=== PATIENT | female | born 1980 | race Caucasian/White ===

== ENCOUNTER → 2016-04-20 | Outpatient (CLI) | payer SELFPAY ==
[~2016-04-20] MED LIST: CO Q-1010 M1 PO; MOBIC 7.5MG7.5 MG PO; MOTRIN 400400 MG/TAB PO; MULTI VITAMINS1 TAB PO; SYNTHROID0.137 MG; TYLENOL 325MG325 MG PO; ULTRAM 50MG TAB50 MG PO; ZOFRAN8 MG PO
== END ==
LOC: BHSO 09:45
DX: F43.10 Post-traumatic stress disorder, unspecified (principal)

== ENCOUNTER → 2016-11-21 | Outpatient (CLI) | payer SELFPAY | LOC: BHSO 14:56 | DX: F43.10 Post-traumatic stress disorder, unspecified (principal) ==

== ENCOUNTER → 2017-01-19 | Outpatient (CLI) | payer BC | LOC: BHSO 13:46 | DX: F33.1 Major depressive disorder, recurrent, moderate (principal) ==

== ENCOUNTER → 2017-02-21 | Outpatient (CLI) | payer BC | LOC: BHSO 10:03 | DX: F33.1 Major depressive disorder, recurrent, moderate (principal) ==

== ENCOUNTER → 2017-03-02 | Outpatient (CLI) | payer BC | LOC: BHSO 13:54 | DX: F33.1 Major depressive disorder, recurrent, moderate (principal) ==

== ENCOUNTER → 2017-03-12 | Outpatient (CLI) | payer BC | LOC: COL.VAS 08:00 | DX: I07.1 Rheumatic tricuspid insufficiency (principal) ==

== ENCOUNTER → 2017-03-20 | Outpatient (CLI) | payer BC | LOC: BHSO 15:02 | DX: F33.1 Major depressive disorder, recurrent, moderate (principal) | CPT/HCPCS: G0463 ==

== ENCOUNTER → 2017-03-23 | Outpatient (CLI) | payer BC | LOC: BHSO 14:02 | DX: F33.2 Major depressive disorder, recurrent severe without psychotic features (principal) ==

== ENCOUNTER → 2017-04-20 | Outpatient (CLI) | payer BC | LOC: BHSO 15:03 | DX: F33.2 Major depressive disorder, recurrent severe without psychotic features (principal) ==

== ENCOUNTER → 2017-05-31 | Outpatient (CLI) | payer BC | LOC: BHSO 15:49 | DX: F33.2 Major depressive disorder, recurrent severe without psychotic features (principal) ==

== ENCOUNTER → 2017-06-20 | Outpatient (CLI) | payer BC | LOC: COL.RAD 10:50 | DX: R51 Headache (principal); Z98.1 Arthrodesis status; R20.2 Paresthesia of skin | CPT/HCPCS: Q9967 ==

== ENCOUNTER → 2017-06-22 | Outpatient (CLI) | payer BC | LOC: BHSO 13:56 | DX: F33.2 Major depressive disorder, recurrent severe without psychotic features (principal) ==

== ENCOUNTER → 2017-07-12 | Outpatient (CLI) | payer BC | LOC: BHSO 16:05 | DX: F33.1 Major depressive disorder, recurrent, moderate (principal) ==

== ENCOUNTER → 2017-07-19 | Outpatient (CLI) | payer BC | LOC: BHSO 15:50 | DX: F33.2 Major depressive disorder, recurrent severe without psychotic features (principal) ==

== ENCOUNTER → 2017-08-02 | Outpatient (CLI) | payer BC | LOC: BHSO 16:00 | DX: F33.2 Major depressive disorder, recurrent severe without psychotic features (principal) ==

== ENCOUNTER → 2017-08-16 | Outpatient (CLI) | payer BC | LOC: BHSO 15:47 | DX: F33.1 Major depressive disorder, recurrent, moderate (principal) ==

== ENCOUNTER → 2017-08-30 | Outpatient (CLI) | payer BC | LOC: BHSO 15:46 | DX: F33.1 Major depressive disorder, recurrent, moderate (principal) ==

== ENCOUNTER → 2017-09-06 | Outpatient (CLI) | payer BC | LOC: BHSO 15:44 | DX: F43.10 Post-traumatic stress disorder, unspecified (principal) | CPT/HCPCS: G0463 ==

== ENCOUNTER → 2017-09-13 | Outpatient (CLI) | payer BC | LOC: BHSO 15:55 | DX: F33.1 Major depressive disorder, recurrent, moderate (principal) ==

== ENCOUNTER → 2017-09-27 | Outpatient (CLI) | payer BC | LOC: BHSO 16:02 | DX: F33.2 Major depressive disorder, recurrent severe without psychotic features (principal) ==

== ENCOUNTER → 2017-10-11 | Outpatient (CLI) | payer BC | LOC: BHSO 15:52 | DX: F41.1 Generalized anxiety disorder (principal) ==

== ENCOUNTER → 2017-10-23 | Outpatient (CLI) | payer BC | LOC: BHSO 15:45 | DX: F33.1 Major depressive disorder, recurrent, moderate (principal) ==

== ENCOUNTER → 2017-11-08 | Outpatient (CLI) | payer BC | LOC: BHSO 15:52 | DX: F33.1 Major depressive disorder, recurrent, moderate (principal) ==

== ENCOUNTER → 2017-11-23 | Outpatient (CLI) | payer BC | LOC: BHSO 13:54 | DX: F33.1 Major depressive disorder, recurrent, moderate (principal) ==

== ENCOUNTER → 2017-12-07 | Outpatient (CLI) | payer BC | LOC: BHSO 13:46 | DX: F33.2 Major depressive disorder, recurrent severe without psychotic features (principal) ==

== ENCOUNTER → 2017-12-11 | Outpatient (CLI) | payer BC | LOC: COL.RAD 09:16 | DX: Z09 Encounter for follow-up examination after completed treatment for conditions other than malignant neoplasm (principal); Z98.1 Arthrodesis status; Z87.39 Personal history of other diseases of the musculoskeletal system and connective tissue ==

== ENCOUNTER → 2017-12-13 | Outpatient (CLI) | payer BC | LOC: BHSO 13:07 | DX: F33.2 Major depressive disorder, recurrent severe without psychotic features (principal) ==

== ENCOUNTER → 2018-01-16 | Outpatient (CLI) | payer BC | LOC: BHSO 13:34 | DX: F43.10 Post-traumatic stress disorder, unspecified (principal) | CPT/HCPCS: G0463 ==

== ENCOUNTER → 2018-01-30 | Outpatient (CLI) | payer BC | LOC: BHSO 14:50 | DX: F33.2 Major depressive disorder, recurrent severe without psychotic features (principal) ==

== ENCOUNTER → 2018-01-31 | Outpatient (CLI) | payer BC | LOC: COL.RAD 09:46 | DX: E04.2 Nontoxic multinodular goiter (principal) ==

== ENCOUNTER → 2018-02-11 | Outpatient (CLI) | payer BC | LOC: COL.RAD 11:59 | DX: Z98.1 Arthrodesis status (principal) ==

== ENCOUNTER → 2018-02-13 | Outpatient (CLI) | payer BC | LOC: BHSO 09:51 | DX: F33.2 Major depressive disorder, recurrent severe without psychotic features (principal) ==

== ENCOUNTER → 2018-02-21 | Outpatient (CLI) | payer BC | LOC: BHSO 11:41 | DX: F06.32 Mood disorder due to known physiological condition with major depressive-like episode (principal) | CPT/HCPCS: G0463 ==

== ENCOUNTER → 2018-02-22 | Outpatient (CLI) | payer BC | LOC: BHSO 13:54 | DX: F33.2 Major depressive disorder, recurrent severe without psychotic features (principal) ==

== ENCOUNTER → 2018-03-06 | Outpatient (CLI) | payer BC | LOC: BHSO 12:59 | DX: F33.2 Major depressive disorder, recurrent severe without psychotic features (principal) ==

== ENCOUNTER → 2018-03-15 | Outpatient (CLI) | payer BC | LOC: BHSO 10:54 | DX: F33.2 Major depressive disorder, recurrent severe without psychotic features (principal) ==

== ENCOUNTER → 2018-03-27 | Outpatient (CLI) | payer BC | LOC: BHSO 10:36 | DX: F43.10 Post-traumatic stress disorder, unspecified (principal) | CPT/HCPCS: G0463 ==

== ENCOUNTER → 2018-04-03 | Outpatient (CLI) | payer BC | LOC: BHSO 08:47 | DX: F33.2 Major depressive disorder, recurrent severe without psychotic features (principal) ==

== ENCOUNTER → 2018-04-08 | Outpatient (CLI) | payer BC | LOC: BHSO 12:49 | DX: F33.2 Major depressive disorder, recurrent severe without psychotic features (principal) ==

== ENCOUNTER → 2018-04-15 | Outpatient (CLI) | payer BC | LOC: BHSO 11:03 | DX: F33.1 Major depressive disorder, recurrent, moderate (principal) ==

== ENCOUNTER → 2018-04-25 | Outpatient (CLI) | payer BC | LOC: BHSO 12:54 | DX: F33.1 Major depressive disorder, recurrent, moderate (principal) ==

== ENCOUNTER → 2018-05-02 | Outpatient (CLI) | payer BC | LOC: BHSO 14:57 | DX: F43.10 Post-traumatic stress disorder, unspecified (principal) ==

== ENCOUNTER → 2018-05-08 | Outpatient (CLI) | payer BC | LOC: BHSO 12:56 | DX: F33.1 Major depressive disorder, recurrent, moderate (principal) ==

== ENCOUNTER → 2018-05-15 | Outpatient (CLI) | payer BC | LOC: BHSO 14:36 | DX: F43.10 Post-traumatic stress disorder, unspecified (principal) | CPT/HCPCS: G0463 ==

== ENCOUNTER → 2018-05-16 | Outpatient (CLI) | payer BC | LOC: BHSO 14:57 | DX: F33.1 Major depressive disorder, recurrent, moderate (principal) ==

== ENCOUNTER → 2018-05-29 | Outpatient (CLI) | payer BC | LOC: BHSO 10:49 | DX: F43.10 Post-traumatic stress disorder, unspecified (principal) ==

== ENCOUNTER → 2018-06-10 | Outpatient (CLI) | payer SELFPAY | LOC: COL.RAD 13:30 | DX: M50.121 Cervical disc disorder at C4-C5 level with radiculopathy (principal); M48.02 Spinal stenosis, cervical region; Z98.1 Arthrodesis status; M40.202 Unspecified kyphosis, cervical region ==

== ENCOUNTER → 2018-06-13 | Outpatient (CLI) | payer SELFPAY | LOC: BHSO 12:57 | DX: F43.10 Post-traumatic stress disorder, unspecified (principal) ==

== ENCOUNTER → 2018-06-24 | Outpatient (CLI) | payer SELFPAY | LOC: BHSO 11:04 | DX: F33.1 Major depressive disorder, recurrent, moderate (principal) ==

== ENCOUNTER → 2018-07-08 | Outpatient (CLI) | payer SELFPAY | LOC: BHSO 10:56 | DX: F33.1 Major depressive disorder, recurrent, moderate (principal) ==

== ENCOUNTER → 2018-07-16 | Outpatient (CLI) | payer SELFPAY | LOC: BHSO 13:56 | DX: F33.1 Major depressive disorder, recurrent, moderate (principal) ==

== ENCOUNTER → 2018-07-18 | Outpatient (CLI) | payer SELFPAY | LOC: BHSO 14:12 | DX: F43.10 Post-traumatic stress disorder, unspecified (principal) | CPT/HCPCS: G0463 ==

== ENCOUNTER → 2018-08-13 | Outpatient (CLI) | payer SELFPAY | LOC: BHSO 12:52 | DX: F31.81 Bipolar II disorder (principal) ==

== ENCOUNTER → 2018-10-01 | Outpatient (CLI) | payer SELFPAY | LOC: BHSO 13:53 | DX: F43.10 Post-traumatic stress disorder, unspecified (principal) | CPT/HCPCS: G0463 ==

== ENCOUNTER → 2018-10-02 | Outpatient (CLI) | payer SELFPAY | LOC: BHSO 10:56 | DX: F33.1 Major depressive disorder, recurrent, moderate (principal) ==

== ENCOUNTER → 2018-10-29 | Outpatient (CLI) | payer SELFPAY | LOC: BHSO 15:10 | DX: F43.10 Post-traumatic stress disorder, unspecified (principal) | CPT/HCPCS: G0463 ==

== ENCOUNTER → 2018-10-31 | Outpatient (CLI) | payer SELFPAY | LOC: BHSO 11:07 | DX: F33.1 Major depressive disorder, recurrent, moderate (principal) ==

== ENCOUNTER → 2018-11-07 | Outpatient (CLI) | payer SELFPAY | LOC: BHSO 08:50 | DX: F33.1 Major depressive disorder, recurrent, moderate (principal) ==

== ENCOUNTER → 2018-11-13 | Outpatient (CLI) | payer SELFPAY | LOC: BHSO 14:00 | DX: F33.1 Major depressive disorder, recurrent, moderate (principal) ==

== ENCOUNTER → 2018-11-22 | Outpatient (CLI) | payer SELFPAY | LOC: BHSO 13:16 | DX: F33.2 Major depressive disorder, recurrent severe without psychotic features (principal) ==

== ENCOUNTER → 2018-12-02 | Outpatient (CLI) | payer SELFPAY | LOC: BHSO 13:04 | DX: F33.2 Major depressive disorder, recurrent severe without psychotic features (principal) ==

== ENCOUNTER → 2018-12-09 | Outpatient (CLI) | payer SELFPAY | LOC: BHSO 13:03 | DX: F33.1 Major depressive disorder, recurrent, moderate (principal) ==

== ENCOUNTER → 2018-12-20 | Outpatient (CLI) | payer SELFPAY | LOC: BHSO 09:58 | DX: F33.1 Major depressive disorder, recurrent, moderate (principal) ==

== ENCOUNTER → 2018-12-27 | Outpatient (CLI) | payer SELFPAY | LOC: BHSO 13:56 | DX: F43.10 Post-traumatic stress disorder, unspecified (principal) | CPT/HCPCS: G0463 ==

== ENCOUNTER → 2018-12-30 | Outpatient (CLI) | payer SELFPAY | LOC: BHSO 15:04 | DX: F33.1 Major depressive disorder, recurrent, moderate (principal) ==

== ENCOUNTER → 2019-01-13 | Outpatient (CLI) | payer SELFPAY | LOC: COL.RAD 14:32 | DX: M50.121 Cervical disc disorder at C4-C5 level with radiculopathy (principal); M40.209 Unspecified kyphosis, site unspecified; Z98.1 Arthrodesis status; M48.02 Spinal stenosis, cervical region ==

== ENCOUNTER → 2019-01-15 | Outpatient (CLI) | payer SELFPAY | LOC: BHSO 14:00 | DX: F33.1 Major depressive disorder, recurrent, moderate (principal) ==

== ENCOUNTER → 2019-03-03 | Outpatient (CLI) | payer SELFPAY | LOC: BHSO 13:02 | DX: F43.10 Post-traumatic stress disorder, unspecified (principal) | CPT/HCPCS: G0463 ==

== ENCOUNTER → 2019-03-19 | Outpatient (CLI) | payer SELFPAY | LOC: BHSO 13:56 | DX: F43.10 Post-traumatic stress disorder, unspecified (principal) ==

== ENCOUNTER → 2019-04-18 | Outpatient (CLI) | payer SELFPAY | LOC: BHSO 10:04 | DX: F43.10 Post-traumatic stress disorder, unspecified (principal) ==

== ENCOUNTER → 2019-05-09 | Outpatient (CLI) | payer SELFPAY | LOC: BHSO 13:01 | DX: F43.10 Post-traumatic stress disorder, unspecified (principal) ==

== ENCOUNTER → 2019-05-16 | Outpatient (CLI) | payer SELFPAY | LOC: BHSO 13:00 | DX: F43.10 Post-traumatic stress disorder, unspecified (principal) ==

== ENCOUNTER → 2019-05-23 | Outpatient (CLI) | payer SELFPAY | LOC: BHSO 12:53 | DX: F43.10 Post-traumatic stress disorder, unspecified (principal) ==

== ENCOUNTER → 2019-06-16 | Outpatient (CLI) | payer SELFPAY | LOC: BHSO 14:00 | DX: F43.10 Post-traumatic stress disorder, unspecified (principal) ==

== ENCOUNTER → 2019-07-14 | Outpatient (CLI) | payer SELFPAY | LOC: BHSO 15:00 | DX: F43.10 Post-traumatic stress disorder, unspecified (principal) ==

== ENCOUNTER → 2019-07-29 | Outpatient (CLI) | payer SELFPAY | LOC: BHSO 15:10 | DX: F43.10 Post-traumatic stress disorder, unspecified (principal) ==

== ENCOUNTER → 2019-08-04 | Outpatient (CLI) | payer SELFPAY | LOC: BHSO 14:01 | DX: F43.10 Post-traumatic stress disorder, unspecified (principal) ==

== ENCOUNTER → 2019-09-12 | Outpatient (CLI) | payer SELFPAY | LOC: COL.RAD 15:17 | DX: R06.00 Dyspnea, unspecified (principal); R10.13 Epigastric pain | CPT/HCPCS: Q9967 ==

== ENCOUNTER → 2019-09-16 | Outpatient (CLI) | payer SELFPAY ==
[2019-09-16 12:15] LABS: BASO # 0.1 (0.0-0.2); BASO % 1.2 % (0.0-2.0); EOS % 0.8 % (0-4.0); GRAN # 2.6 (1.4-6.5); GRAN % 50.9 % (42.2-75.2); HEMATOCRIT 37.3 % (37.0-47.0); HEMOGLOBIN 12.5 g/dl (12.5-16.0); LYMPH # 1.9 (1.2-3.4); LYMPH % 36.6 % (20.0-51.0); MEAN CELL VOLUME 100 fl (80.0-100.0); MEAN CORPUSCULAR HEMOGLOBIN 33 pg (27.0-31.0); MEAN CORPUSCULAR HGB CONC 34 g/dl (33.0-37.0); MEAN PLATELET VOLUME 9.7 fl (7.4-10.4); MONO # 0.5 (0.1-0.6); MONO % 10.1 % (1.7-9.3); PLATELET COUNT 284 K/mm3 (130-400); RED BLOOD COUNT 3.74 M/mm3 (4.10-5.30)
[2019-09-16 12:26] LABS: ALBUMIN 4.6 gm/dL (3.5-5.0); BILIRUBIN,TOTAL 0.4 mg/dL (0.0-1.0); CREATININE, serum 0.85 (0.52-1.25); POTASSIUM 4.3 mmol/L (3.4-5.0); TOTAL PROTEIN 7.8 gm/dL (6.4-8.2)
[2019-09-16 12:37] LABS: ERYTHROCYTE SEDIMENTATION RATE 6 mm/hr (0-20)
== END ==
LOC: COL.LAB 08:21
PROVIDERS: Family Medicine
DX: R06.00 Dyspnea, unspecified (principal); R00.0 Tachycardia, unspecified; R07.9 Chest pain, unspecified

== ENCOUNTER → 2019-09-22 | Outpatient (CLI) | payer SELFPAY ==
[2019-09-23 23:37] LABS: EBV NUCLEAR ANTIGEN IGG Positive (())
== END ==
LOC: COL.LAB 16:21
PROVIDERS: Family Medicine
DX: R10.13 Epigastric pain (principal); R50.9 Fever, unspecified

== ENCOUNTER → 2019-09-22 | Outpatient (CLI) | payer SELFPAY | LOC: BHSO 14:08 | DX: F43.10 Post-traumatic stress disorder, unspecified (principal) ==

== ENCOUNTER → 2019-09-29 | Outpatient (CLI) | payer SELFPAY | LOC: BHSO 13:07 | DX: F43.10 Post-traumatic stress disorder, unspecified (principal) ==

== ENCOUNTER → 2019-10-06 | Outpatient (CLI) | payer SELFPAY | LOC: BHSO 13:03 | DX: F43.10 Post-traumatic stress disorder, unspecified (principal) ==

== ENCOUNTER → 2019-10-09 | Outpatient (CLI) | payer SELFPAY ==
[2019-10-14 12:23] LABS: CYTOMEGALOVIRUS DNA PCR Not Detected (()); CYTOMEGALOVIRUS DNA PCR LOG Not Detected (())
== END ==
LOC: COL.RAD 14:49
PROVIDERS: Nurse Practitioner
DX: R50.9 Fever, unspecified (principal); R10.9 Unspecified abdominal pain; R19.7 Diarrhea, unspecified
CPT/HCPCS: Q9967

== ENCOUNTER → 2019-10-14 | Outpatient (CLI) | payer SELFPAY ==
[2019-10-14 15:26] LABS: HEMOGLOBIN 12.4 g/dl (12.5-16.0); MEAN CELL VOLUME 100 fl (80.0-100.0); MEAN CORPUSCULAR HEMOGLOBIN 33 pg (27.0-31.0); MEAN CORPUSCULAR HGB CONC 34 g/dl (33.0-37.0); MEAN PLATELET VOLUME 9.7 fl (7.4-10.4); PLATELET COUNT 254 K/mm3 (130-400); RED BLOOD COUNT 3.72 M/mm3 (4.10-5.30); REDCELL DISTRIBUTION WIDTH-CV 12.2 % (11.5-14.5)
[2019-10-14 15:30] LABS: ALANINE AMINOTRANSFERASE 20 U/L (4-34); ALBUMIN 4.6 gm/dL (3.5-5.0); ALKALINE PHOSPHATASE 45 U/L (50-136); ANION GAP 6 mmol/L (7-16); AST,SGOT 33 U/L (15-37); BILIRUBIN,TOTAL 0.4 mg/dL (0.0-1.0); BLOOD UREA NITROGEN 10 mg/dL (7-17); CALCIUM 9.5 mg/dL (8.4-10.2); CARBON DIOXIDE 30 mmol/L (22-30); CHLORIDE 101 mmol/L (98-107); GLUCOSE 73 mg/dL (74-106); POTASSIUM 4.3 mmol/L (3.4-5.0); SODIUM 137 mmol/L (137-145)
[2019-10-14 16:05] LABS: ERYTHROCYTE SEDIMENTATION RATE 4 mm/hr (0-20)
[2019-10-14 16:06] LABS: C-REACTIVE PROTEIN < 0.5 mg/dL (0.0-0.9)
[2019-10-17 11:54] LABS: VITAMIN E 16.4 mg/L (())
[2019-10-19 06:37] LABS: VITAMIN B1 136 nmol/L (70-180)
== END ==
LOC: COL.RAD 14:00
PROVIDERS: Psychiatry & Neurology Neurology
DX: K63.89 Other specified diseases of intestine (principal); Z87.820 Personal history of traumatic brain injury

== ENCOUNTER → 2019-10-16 | Outpatient (CLI) | payer SELFPAY | LOC: ZCOL.LAB 10:53 | DX: R10.9 Unspecified abdominal pain (principal); R19.7 Diarrhea, unspecified; R50.9 Fever, unspecified ==

== ENCOUNTER → 2019-11-04 | Outpatient (CLI) | payer SELFPAY | LOC: BHSO 14:10 | DX: F43.10 Post-traumatic stress disorder, unspecified (principal) | CPT/HCPCS: G0463 ==

== ENCOUNTER → 2019-11-13 | Outpatient (CLI) | payer SELFPAY | LOC: BHSO 09:00 | DX: F43.10 Post-traumatic stress disorder, unspecified (principal) ==

== ENCOUNTER → 2019-11-20 | Outpatient (CLI) | payer SELFPAY | LOC: BHSO 11:00 | DX: F43.10 Post-traumatic stress disorder, unspecified (principal) ==

== ENCOUNTER → 2019-12-01 | Outpatient (CLI) | payer SELFPAY | LOC: BHSO 14:13 | DX: F43.10 Post-traumatic stress disorder, unspecified (principal) ==

== ENCOUNTER → 2019-12-08 | Outpatient (CLI) | payer SELFPAY | LOC: BHSO 14:11 | DX: F43.10 Post-traumatic stress disorder, unspecified (principal) ==

== ENCOUNTER → 2019-12-15 | Outpatient (CLI) | payer SELFPAY | LOC: BHSO 11:08 | DX: F43.10 Post-traumatic stress disorder, unspecified (principal) ==

== ENCOUNTER → 2019-12-25 | Outpatient (CLI) | payer SELFPAY | LOC: BHSO 14:59 | DX: F43.10 Post-traumatic stress disorder, unspecified (principal) ==

== ENCOUNTER → 2019-12-30 | Outpatient (CLI) | payer SELFPAY | LOC: COL.LAB 08:00 → SDCO 01-02 10:15 → EDSTATUS 01-02 10:15 | DX: R50.9 Fever, unspecified (principal); K59.00 Constipation, unspecified; R19.7 Diarrhea, unspecified; Z20.828 Contact with and (suspected) exposure to other viral communicable diseases ==

== ENCOUNTER → 2020-01-12 | Outpatient (CLI) | payer SELFPAY | LOC: BHSO 15:07 | DX: F43.10 Post-traumatic stress disorder, unspecified (principal) ==

== ENCOUNTER 2023-11-03 10:50 | Emergency (ER) | payer MEDICARE, MEDICAID ==
[~2023-11-03] VITALS: Ht 170.2 cm; Wt 68.2 kg
[2023-11-03 10:59] VITALS: TEMP 98.7
[2023-11-03] MEDS ORDERED: NS 1,000 ML IV ONE (11:15)
[2023-11-03] MEDS ORDERED: Morphine 4 MG/ML VIAL IV ONE (11:15)
[2023-11-03] MEDS ORDERED: Ondansetron 4 MG/2 ML VIAL IV ONE (11:15)
[2023-11-03 11:33] LABS: BASO # 0.1 K/mm3 (0.0-0.2); BASO % 0.8 % (0.0-2.0); EOS % 0.3 % (0.0-4.0); GRAN # 3.7 K/mm3 (1.4-6.5); GRAN % 57.3 % (42.2-75.2); HEMATOCRIT 41.4 % (37.0-47.0); HEMOGLOBIN 14.2 g/dl (12.5-16.0); LYMPH # 1.9 K/mm3 (1.2-3.4); LYMPH % 28.9 % (20.0-51.0); MEAN CELL VOLUME 97 fl (80.0-100.0); MEAN CORPUSCULAR HEMOGLOBIN 33 pg (27-31); MEAN CORPUSCULAR HGB CONC 34 g/dl (33.0-37.0); MEAN PLATELET VOLUME 10.7 fl (7.4-10.4); MONO # 0.8 K/mm3 (0.1-0.6); MONO % 12.5 % (1.7-9.3); PLATELET COUNT 320 K/mm3 (130-400); RED BLOOD COUNT 4.28 M/mm3 (4.10-5.30); REDCELL DISTRIBUTION WIDTH-CV 12.7 % (11.5-14.5)
[2023-11-03 11:57] LABS: ALBUMIN 4.2 g/dL (3.5-5.0); BILIRUBIN,TOTAL 0.5 mg/dL (0.2-1.2); CALCIUM 9.4 mg/dL (8.4-10.2); CREATININE, serum 0.86 mg/dL (0.57-1.11); POTASSIUM 3.9 mEq/L (3.5-4.5); TOTAL PROTEIN 7.8 g/dl (6.2-8.1)
[2023-11-03 12:36] LABS: PROLACTIN 7.6 ng/mL (5.18-26.53)
[2023-11-03 13:00] VITALS: BP 114/72; PULSE 79
== END 2023-11-03 13:08 | disposition home or self-care (01) ==
LOC: COL.ER 10:50
PROVIDERS: Personal Emergency Response Attendant
DX: G25.3 Myoclonus (principal); R51.9 Headache, unspecified; R11.2 Nausea with vomiting, unspecified
CPT/HCPCS: J2405; J7030

== ENCOUNTER 2023-11-13 00:18 | Emergency (ER) | payer MEDICARE, MEDICAID ==
[~2023-11-13] VITALS: Ht 170.2 cm; Wt 65.9 kg
[2023-11-13 00:25] VITALS: TEMP 98.3
[2023-11-13 01:04] LABS: COLLECTION METHOD CLEAN CATCH
[2023-11-13 01:11] LABS: BASO # 0.1 K/mm3 (0.0-0.2); BASO % 0.9 % (0.0-2.0); EOS # 0.1 K/mm3 (0.0-0.7); EOS % 0.9 % (0.0-4.0); GRAN # 4.6 K/mm3 (1.4-6.5); GRAN % 57.5 % (42.2-75.2); HEMOGLOBIN 12.6 g/dl (12.5-16.0); LYMPH # 2.4 K/mm3 (1.2-3.4); LYMPH % 29.8 % (20.0-51.0); MEAN CELL VOLUME 94 fl (80.0-100.0); MEAN CORPUSCULAR HEMOGLOBIN 33 pg (27-31); MEAN CORPUSCULAR HGB CONC 35 g/dl (33.0-37.0); MEAN PLATELET VOLUME 10.1 fl (7.4-10.4); MONO # 0.9 K/mm3 (0.1-0.6); MONO % 10.7 % (1.7-9.3); PLATELET COUNT 291 K/mm3 (130-400); RED BLOOD COUNT 3.81 M/mm3 (4.10-5.30); REDCELL DISTRIBUTION WIDTH-CV 12.7 % (11.5-14.5)
[2023-11-13 01:14] LABS: HEMATOCRIT 35.7 % (37.0-47.0)
[2023-11-13 01:15] LABS: URINE APPEARANCE CLEAR (CLEAR/HAZY); URINE BLOOD NEGATIVE (NEGATIVE); URINE COLOR YELLOW (YELLOW); URINE GLUCOSE NEGATIVE (NEGATIVE); URINE KETONE TRACE (NEGATIVE); URINE NITRATE NEGATIVE (NEGATIVE); URINE PROTEIN(semi-quant) NEGATIVE (NEGATIVE)
[2023-11-13 01:27] LABS: ALANINE AMINOTRANSFERASE 10 U/L (0-55); ALBUMIN 3.9 g/dL (3.5-5.0); ALKALINE PHOSPHATASE 53 U/L (40-150); ANION GAP 12 mmol/L (7-16); AST,SGOT 14 U/L (5-34); BILIRUBIN,TOTAL 0.3 mg/dL (0.2-1.2); BLOOD UREA NITROGEN 16 mg/dL (7-19); CALCIUM 9.3 mg/dL (8.4-10.2); CHLORIDE 99 mEq/L (98-107); CREATININE, serum 0.84 mg/dL (0.57-1.11); GLUCOSE 100 mg/dL (70-99); SODIUM 137 mEq/L (136-145); TOTAL PROTEIN 6.9 g/dl (6.2-8.1)
[2023-11-13 01:28] LABS: ALCOHOL(ethanol),MEDICAL < 10 mg/dL (0-10); SALICYLATE < 5.0 mg/dL (15.0-30.0)
[2023-11-13 01:30] LABS: TRICYCLIC ANTIDEPRESS URINE NEGATIVE (NEGATIVE)
[2023-11-13 02:10] VITALS: BP 110/74; PULSE 92
== END 2023-11-13 02:10 | disposition home or self-care (01) ==
LOC: COL.ER 00:18
PROVIDERS: Nurse Practitioner Primary Care
DX: R44.3 Hallucinations, unspecified (principal); F60.0 Paranoid personality disorder; F17.210 Nicotine dependence, cigarettes, uncomplicated